=== PATIENT | female | born 1965 | race Caucasian/White ===

== ENCOUNTER 2019-11-14 | Emergency (ER) | payer OTHER ==
[2019-11-14 13:40] LABS: HEMATOCRIT 41.6 % (37.0-47.0); HEMOGLOBIN 13.8 g/dl (12.0-16.0); IMMATURE GRANULOCYTES 0.3 % (0.0-5.0); MEAN CELL VOLUME 95.9 fL CALC (80.0-100.0); MEAN CORPUSCULAR HGB 31.8 pG CALC (26.0-32.0); MEAN CORPUSCULAR HGB CONC 33.2 g/L CALC (32.0-36.0); NEUT# 4.79 thou/uL (2.00-7.15); RED BLOOD COUNT 4.34 mill/uL (4.20-5.60); RED CELL DISTRI WIDTH 11.9 % (11.5-15.5)
[2019-11-14] MEDS ORDERED: LEVOTHYROXIN50 MCG PO (13:48)
[2019-11-14] MEDS ORDERED: VICODIN HP1 TA1 PO (13:50)
[2019-11-14] MEDS ORDERED: NEURONTIN300 MG PO (13:50)
[2019-11-14] MEDS ORDERED: B121000 MCG PO (13:51)
[2019-11-14] MEDS ORDERED: REMERON30 MG PO (13:52)
[2019-11-14] MEDS ORDERED: VALIUM2 MG PO (13:52)
[2019-11-14 13:54] LABS: ANION GAP 15 (6-22 (CALC)); BUN 9 mg/dL (7-17); BUN/CREATININE RATIO 17 (12-20 (CALC)); CARBON DIOXIDE 23 mmol/l (22-30); CHLORIDE 104 mmol/l (95-108); CREATININE 0.6 mg/dL (0.5-1.0); GFR > 60 ML/MIN (>=60 (CALC)); GFR FOR AFR.AMER. > 60 ML/MIN (>=60 (CALC)); POTASSIUM 3.7 mmol/l (3.5-5.1); SODIUM 138 mmol/l (137-146)
[2019-11-14] MEDS ORDERED: XANAX0.5 MG PO (13:56)
[2019-11-14] MEDS ORDERED: FLEXERIL PO (13:58)
[2019-11-14] MEDS ORDERED: MINIPRESS1 MG PO (14:03)
[2019-11-14 14:48] LABS: BARBITURATES NEGATIVE (NEGATIVE); COCAINE NEGATIVE (NEGATIVE); METHADONE NEGATIVE (NEGATIVE); TETRAHYDROCANNABIONOL NEGATIVE (NEGATIVE); TRICYLIC ANTIDEPRESSANTS NEGATIVE (NEGATIVE)
[2019-11-14 14:49] LABS: OXCYCODONE NEGATIVE (NEGATIVE)
== END 2019-11-14 15:20 | disposition home or self-care (01) ==
PROVIDERS: Family Medicine
DX: R07.9 Chest pain, unspecified (principal)